=== PATIENT | female | born 1970 | race Caucasian/White ===

== ENCOUNTER 2018-07-25 20:35 | Emergency (ER) | payer MEDICAID ==
[~2018-07-25] VITALS: Ht 172.7 cm; Wt 63.6 kg
[2018-07-25] MEDS ORDERED: cloNIDine 0.2 MG/24 HR patch (7 day patch) TD ONE (22:30)
[2018-07-25] MEDS ORDERED: CHLO25CA10 PO (22:35)
[2018-07-25] MEDS ORDERED: chlordiazePOXIDE 25mg capsule PO ONE (22:35)
[2018-07-25] MEDS ORDERED: PHE12.5T PO (22:35)
--- NOTE | 2018-07-25 23:34 | NUR ---
PATIENT HERE BECAUSE SHE WANTS TO "GET CLEAN". DEANNA SPOKE TO THE [facility] AND IS HERE FOR MEDICAL CLEARANCE FOR DETOX AT THE [facility]. PATIENT'S LAST DRINK WAS A FEW MINUTES AGO: SHE HAS WHISKEY IN HER TRAVEL CUP. SHE ALSO RECEWNTLY SMOKED METH. PATIENT WAITED A FEW MINUTES IN THE [facility] ROOM AND THEN WAS WANTING TO LEAVE. WE DISCUSSED THE FACT THAT SHE TOOK THE HARDEST STEP TO COME TO THE ER FOR MED CLEARANCE AND SHE HAS BEEN IN [facility] FOR 20 YEARS.
--- NOTE | 2018-07-25 23:37 | NUR ---
SHE WANTS TO STAY SOBER: SHE WAS SOBER FOR 1 YEAR 3 YEARS AGO. SHE STATE DTHAT SHE NEEDS SUPPORT TO STAY CLEAN. PATIENT IS MEDICALLY CLEARED TO GO TO THE [facility]. PATIENT VERBALIZED DISCHARGE PLAN. PATIENT WILL TAKE LIBRIUM AND PHENERGAN DIRECTED AND PATIENT VERBALLIZED SIDE EFFECTS. PATIENT WILL TAKE OFF THE CLONIDINE PATCH IS SHE FEELS DIZZY. PATIENT APPEARS ANXIOUS BUT IS NOT SHAKING. SHE THAKED ME AND AMBULATED OUT OF THE ER WNL
[2018-07-25 23:40] VITALS: BP 139/75
--- NOTE | 2018-07-25 23:43 | NUR ---
PATIENT LEFT WITH WATER IN HER TRAVEL CUP
== END 2018-07-25 23:44 | disposition home or self-care (01) ==
LOC: ER 20:35
DX: F10.129 Alcohol abuse with intoxication, unspecified (principal); R25.1 Tremor, unspecified; J45.909 Unspecified asthma, uncomplicated; Z02.89 Encounter for other administrative examinations; Y90.9 Presence of alcohol in blood, level not specified
CPT/HCPCS: 99283